=== PATIENT | female | born 1970 | race Caucasian/White ===

== ENCOUNTER 2016-09-13 08:48 | Day surgery (SDC) | payer OTHER ==
--- NOTE | 2016-09-12 08:36 | HP ---
Admitting History and Physical - Primary Care Physician PCP: Jennifer Escobedo - Admission Chief Complaint: left axillary soft tissue mass History of Present Illness: Patient with h/o bilateral mastectomy secondary to stage 3 left breast cancer ( 2005), was noted on self exam to have a left axillary mass. Patient is presenting for excision of this left axillary soft tissue mass. History Source: Patient Limitations to Obtaining History: No Limitations - Past Medical History Heme/Onc: Yes: Cancer (left breast cancer (2005)) - Past Surgical History Past Surgical History: Yes: Mastectomy (bilateral mastectomy (04/2006)) Additional Past Surgical History: Left breast WE and ANDx 2005 and oophorectomy 2006 Home Medications - Allergies Allergies/Adverse Reactions: Allergies Allergy/AdvReac Type Severity Reaction Status Date / Time No Known Allergies Allergy Verified 09/12/16 08:37 - Home Medications Home Medications (free text): Arimidex Family Disease History - Family Disease History Family History: Unremarkable Review of Systems - Review of Systems Constitutional: reports: No Symptoms Cardiovascular: reports: No Symptoms Respiratory: reports: No Symptoms Physical Examination Constitutional: Yes: Well Nourished, Calm Cardiovascular: Yes: WNL Respiratory: Yes: WNL Breast(s): Yes: Other (palpable 1.5 cm rubbery nodule in high left axilla) Problem List - Problems (1) Personal history of breast cancer Code(s): Z85.3 - PERSONAL HISTORY OF MALIGNANT NEOPLASM OF BREAST (2) Mass of left axilla Code(s): R22.32 - LOCALIZED SWELLING, MASS AND LUMP, LEFT UPPER LIMB Assessment/Plan Plan: Wide excision of left axillary mass
[2016-09-12 13:48] VITALS: BMI 20.7
[2016-09-13] MEDS ORDERED: MIDAZOLAM HCL 2 MG/2 ML SINGLE DOSE VIAL ONE (10:16)
[2016-09-13] MEDS ORDERED: ONDANSETRON 4 MG/2 ML VIAL IVPB PRN (10:37)
[2016-09-13] MEDS ORDERED: DEXTROSE 5%-0.45% SALINE 1,000 ML IV SCH (10:45)
[2016-09-13] MEDS ORDERED: oxyCODONE HCL 5 MG TABLET PO PRN ×2 (12:25)
[2016-09-13] MEDS ORDERED: LACTATED RINGERS SOLUTION 1,000 ML IV SCH (12:30)
[2016-09-13 13:13] VITALS: PULSE 59; TEMP 97.7
[2016-09-13 13:22] VITALS: BP 90/58
[2016-09-13] MEDS ORDERED: KETOROLAC TROMETHAMINE 30 MG/1 ML VIAL IVPUSH PRN (13:32)
--- NOTE | 2016-09-13 23:29 | OP ---
DATE OF OPERATION: 09/13/2016 PREOPERATIVE DIAGNOSIS: Status post left mastectomy for breast cancer with left axillary nodule. POSTOPERATIVE DIAGNOSIS: Status post left mastectomy for breast cancer with left axillary nodule. PROCEDURE: Left axillary nodule excision. ANESTHESIA: IV sedation with local. SURGEON: Sedrick Escobedo MD LOCOMOTIVE MECHANIC APPRENTICE: AUSTEN Mace ESTIMATED BLOOD LOSS: Minimal. COMPLICATIONS: None. DESCRIPTION OF PROCEDURE: The patient was made aware of the risks and benefits of the procedure and consented. She was place din the supine position. Under sterile conditions, with 1% lidocaine for local anesthesia, the prior axillary incision was opened using blunt and sharp dissection. Tissues were dissected down revealing a firm area of concern that had the appearance of a lymph node. This was sharply and bluntly dissected free, paying special attention to not get too deep or injuring nearby neurovascular structures. This was sent for permanent sectioning. Palpation of the rest of the axilla revealed no other suspicious areas. The wound was copiously irrigated with normal saline and hemostasis maintained by electrocautery. The wound was then closed with deep 3-0 Vicryl followed by a running subcuticular 4-0 Monocryl. Steri-Strips and sterile bandage was applied and the patient, having tolerated the procedure well, was transferred to the recovery room in excellent condition. SEDRICK ESCOBEDO M.D. [id number]
--- NOTE | 2016-09-15 14:57 | PATH ---
Surgical Pathology Report Patient Name: BIACNA PATRICIO [facility]. Rec. #: [id number] /Age/Gender: 1970 (Age: 45) / F Account: [id number] Location: [facility] AMBULATORY Taken: 09/13/2016 Received: 09/13/2016 Reported: 09/15/2016 Physicians: Jennifer Escobedo M.D. Specimen(s) Received LEFT AXILLARY NODULE Clinical History 10 years status post left MTx for ca Final Diagnosis LYMPH NODES, LEFT AXILLARY, EXCISION: THREE BENIGN LYMPH NODES BY STANDARD HEMATOXYLIN AND EOSIN STAIN. Electronically Signed Jose Fraser M.D. Gross Description Received in formalin labeled "left axillary nodule," are 3 stone, irregular portions of tissue ranging from 0.8 x 0.7 x 0.5 cm to 1.5 x 1.2 x 0.6 cm. The specimens are bisected and entirely submitted in 3 cassettes as follows: 1-3-one whole bisected lymph node each. /09/14/2016 saudi09/14/2016
== END 2016-09-13 13:10 | disposition home or self-care (01) ==
LOC: FASU 08:48
PROVIDERS: ATTEND Surgery Surgical Oncology
PROC: 07B60ZX Excision of Left Axillary Lymphatic, Open Approach, Diagnostic (ICD-10-PCS; principal; 2016-09-13 10:55)
DX: R22.32 Localized swelling, mass and lump, left upper limb (principal); Z90.12 Acquired absence of left breast and nipple; Z85.3 Personal history of malignant neoplasm of breast
CPT/HCPCS: 87081; 88305-TC; 94760